=== PATIENT | female | born 1965 | race Caucasian/White ===

== ENCOUNTER 2016-12-08 20:50 | Emergency (ER) | payer BC | END 2016-12-08 21:45 | disposition home or self-care (01) | LOC: ER 20:50 | DX: S61.213A Laceration without foreign body of left middle finger without damage to nail, initial encounter (principal); I10 Essential (primary) hypertension; E07.9 Disorder of thyroid, unspecified; Z79.82 Long term (current) use of aspirin; Z88.5 Allergy status to narcotic agent; Z23 Encounter for immunization; W25.XXXA Contact with sharp glass, initial encounter | CPT/HCPCS: 90471 ==